=== PATIENT | male | born 1970 | race Two or more races ===

== ENCOUNTER 2021-06-24 13:12 | Emergency (ER) | payer OTHER ==
[~2021-06-24] VITALS: Ht 167.6 cm; Wt 140.6 kg
[~2021-06-24 13:12] MED LIST: ERGO500014 PO; INSU100C10 SQ; INSU3INS6 SUBCUT; LOSA50TA39 PO; METO50TA16 PO
--- NOTE | 2021-06-24 13:17 | NUR ---
AT BEDSIDE FOR EVAL.
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
--- NOTE | 2021-06-24 13:25 | NUR ---
CODE STROKE ACTIVATED
--- NOTE | 2021-06-24 13:28 | NUR ---
CALLED TE[employer] TELE NEUROLOGIST WILL BE DR. MCGUIRE.
[2021-06-24] MEDS ORDERED: IOHEXOL-350 100 ML VIAL IV ONE (13:29)
[2021-06-24 13:35] LABS: BASOPHILS # (AUTO) 0.1 K/uL (0.0-0.2); BASOPHILS % (AUTO) 0.8 % (0.0-2.0); EOSINOPHILS % (AUTO) 1.1 % (0.0-6.0); HEMATOCRIT 42 % (39-51); HEMOGLOBIN 13.4 g/dL (13.5-17.5); LYMPHOCYTES # (AUTO) 2.5 K/uL (0.8-4.8); LYMPHOCYTES % (AUTO) 17.1 % (20.0-44.0); MEAN CORPUSCULAR HGB CONC 32 g/dl (31.0-36.0); MEAN CORPUSCULAR VOLUME 85 fL (80-96); MONOCYTES # (AUTO) 0.8 K/uL (0.1-1.30); MONOCYTES % (AUTO) 5.2 % (2.0-12.0); NEUTROPHILS # (AUTO) 10.9 K/uL (1.8-8.9); NEUTROPHILS % (AUTO) 75.8 % (43.0-81.0); PLATELET COUNT (AUTO) 341 K/uL (150-450); RED BLOOD CELL COUNT(AUTO) 4.99 MIL/uL (4.5-6.0); WHITE BLOOD COUNT (AUTO) 14.4 K/uL (4.3-11.0)
[2021-06-24] MEDS ORDERED: KETOROLAC TROMETHAMINE 15 MG/ML VIAL ONE (13:42)
[2021-06-24 13:45] LABS: CALCIUM, SERUM 8.9 mg/dL (8.5-10.1); CARBON DIOXIDE 31 mmol/L (21-32); CHLORIDE 103 mmol/L (98-107); CREATININE 0.8 mg/dL (0.6-1.3); GLUCOSE 170 mg/dL (74-106); POTASSIUM 3.9 mmol/L (3.5-5.1); SODIUM SERUM 137 mmol/L (136-145); UREA NITROGEN, BLOOD 12 mg/dL (7-18)
[2021-06-24] MEDS ORDERED: hydrALAZINE HCL IV 20 MG VIAL ONE ×2 (13:52→15:17)
[2021-06-24] MEDS ORDERED: hydrALAZINE HCL IV 20 MG VIAL IV ONE ×2 (14:00→15:30)
[2021-06-24] MEDS ORDERED: MINO10TA PO (14:00)
[2021-06-24] MEDS ORDERED: INSU300I3 SQ (14:00)
[2021-06-24] MEDS ORDERED: INSU100V36 SQ (14:00)
[2021-06-24] MEDS ORDERED: DULA1.5P SQ (14:00)
[2021-06-24] MEDS ORDERED: AMLO-213 PO (14:00)
[2021-06-24] MEDS ORDERED: KETOROLAC TROMETHAMINE INJ 30 MG/ML VIAL IV ONE (14:00)
[2021-06-24] MEDS ORDERED: HYDR-4075 PO (14:00)
[2021-06-24] MEDS ORDERED: ATOR40TA PO (14:00)
--- NOTE | 2021-06-24 14:25 | NUR ---
PATIENT COMFORTABLE, TALKING ON HIS CELLPHONE
--- NOTE | 2021-06-24 15:11 | NUR ---
DR WOOD AT BEDSIDE TALKING TO THE PATIENT
[2021-06-24] MEDS ORDERED: METOCLOPRAMIDE HCL 10 MG/2 ML VIAL ONE (15:17)
[2021-06-24] MEDS ORDERED: METOCLOPRAMIDE HCL 10 MG/2 ML VIAL IV ONE (15:30)
[2021-06-24] MEDS ORDERED: AZIT250T13 PO (15:54)
[2021-06-24 16:25] VITALS: BP 142/92
--- NOTE | 2021-06-24 16:25 | NUR ---
IV removed. Catheter intact and site benign. Pressure and 4x4 applied to site. No bleeding noted.Patient discharged to home in stable condition. Written and verbal after care instructions given. Patient verbalizes understanding of instruction.
== END 2021-06-24 16:26 | disposition home or self-care (01) ==
LOC: ER 13:15
DX: J18.8 Other pneumonia, unspecified organism (principal); G43.909 Migraine, unspecified, not intractable, without status migrainosus; I10 Essential (primary) hypertension; E10.8 Type 1 diabetes mellitus with unspecified complications; Z87.440 Personal history of urinary (tract) infections; Z87.2 Personal history of diseases of the skin and subcutaneous tissue; Z79.899 Other long term (current) drug therapy
CPT/HCPCS: 36415; 70450; 71045 ×2; 80048; 82962; 84484; 85025; 85730; 93005; 96374; 96375; 96376; 99285; J0360 ×2; J1885; J2765; J7030; Q9967

== ENCOUNTER 2022-09-10 19:55 | Emergency (ER) | payer OTHER ==
[~2022-09-10] VITALS: Ht 170.2 cm; Wt 131.5 kg
[~2022-09-10 19:55] MED LIST changes: +AMLO-213 PO; +ATOR40TA PO; +AZIT250T13 PO; +DULA1.5P SQ; -ERGO500014 PO; +HYDR-4075 PO; -INSU100C10 SQ; +INSU100V36 SQ; +INSU300I3 SQ; -INSU3INS6 SUBCUT; +MINO10TA PO
[2022-09-10 21:17] VITALS: BP 157/88; TEMP 98.1
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
--- NOTE | 2022-09-10 22:00 | NUR ---
PT SEEN BY STRINGED INSTRUMENT ASSEMBLER
[2022-09-10] MEDS ORDERED: IBUPROFEN 400 MG TABLET ONE (22:29)
[2022-09-10] MEDS ORDERED: IBUPROFEN 400 MG TABLET PO ONE (22:30)
[2022-09-10] MEDS ORDERED: IBUP-1953 PO (22:37)
[2022-09-10 22:46] VITALS: O2SAT 97
--- NOTE | 2022-09-10 22:46 | NUR ---
Patient discharged to home in stable condition. Written and verbal after care instructions given. Patient verbalizes understanding of instruction.
== END 2022-09-10 22:46 | disposition home or self-care (01) ==
LOC: ER 19:57
DX: S89.91XA Unspecified injury of right lower leg, initial encounter (principal); I10 Essential (primary) hypertension; E10.8 Type 1 diabetes mellitus with unspecified complications; Z87.440 Personal history of urinary (tract) infections; Z79.899 Other long term (current) drug therapy; V03.99XA Pedestrian with other conveyance injured in collision with car, pick-up truck or van, unspecified whether traffic or nontraffic accident, initial encounter; Y93.89 Activity, other specified; Y92.480 Sidewalk as the place of occurrence of the external cause; Y99.8 Other external cause status
CPT/HCPCS: 73564-TC

== ENCOUNTER 2023-07-06 02:27 | Emergency (ER) | payer OTHER ==
[~2023-07-06] VITALS: Ht 170.2 cm; Wt 131.5 kg
[~2023-07-06 02:27] MED LIST changes: +IBUP-1953 PO
[2023-07-06] MEDS: ASPIRIN 81 MG TAB.CHEW PO ONE (04:26)
[2023-07-06] MEDS ORDERED: KETOROLAC TROMETHAMINE 15 MG/ML VIAL ONE (04:58)
[2023-07-06] MEDS: KETOROLAC TROMETHAMINE 15 MG/ML VIAL IM ONE (05:02)
[2023-07-06 08:00] VITALS: BP 160/85; TEMP 98; O2SAT 95
== END 2023-07-06 08:01 | disposition home or self-care (01) ==
LOC: ER 02:27
DX: M79.642 Pain in left hand (principal); I10 Essential (primary) hypertension; E10.9 Type 1 diabetes mellitus without complications; Z79.4 Long term (current) use of insulin; Z79.899 Other long term (current) drug therapy; W18.39XA Other fall on same level, initial encounter; Y93.89 Activity, other specified; Y92.89 Other specified places as the place of occurrence of the external cause; Y99.8 Other external cause status
CPT/HCPCS: 99285; 73200; 96372; 73130; J1885